=== PATIENT | male | born 1945 | race Caucasian/White ===

== ENCOUNTER 2017-11-10 14:25 | Inpatient (IN) | payer OTHER ==
[~2017-11-10] VITALS: Ht 165.1 cm; Wt 79.9 kg
[~2017-11-10 14:25] MED LIST: CARVEDILOL3.125 MG PO; CLEOCIN300 MG PO; COLACE100 MG PO; FLAGYL500 MG PO; HUMULIN N100 UNITS/ SC; HUMULIN R100 UNITS/ SC; Humulin R SC; LEVEMIR FL100 UNITS/ SC; LIPITOR10 MG PO; Lasix PO; Lovenox SC; Maxipime IV; NOVOLIN N100 UNITS/ SC; NOVOLOG PE100 UNITS/ SC; PROBIOTIC & AC1 EACH PO; Pravachol PO; Protonix IV; Protonix PO; QUESTRAN POWDE378 GM PO; Santyl TP; TYLENOL REGULA325 MG PO; VICODIN 5-3001 EACH PO; XANAX0.25 MG PO; Xanax PO; Zosyn IV
[2017-11-10 16:17] LABS: HEMATOCRIT 36.4 % (38.0-50.0); HEMOGLOBIN 12.9 G/DL (12.5-16.6); MCH 30.7 PG (29.0-34.0); MCHC 35.4 G/DL (30.0-36.0); MCV 86.7 FL (86-99); PLATELET COUNT 229 K/uL (156-360); RBC DIS.WIDTH-CV 12.7 % (11.8-14.6); RBC DIS.WIDTH-SD 40.4 % (39-53)
[2017-11-10 16:25] LABS: ALBUMIN 3.6 g/dL (3.2-4.8); CHLORIDE 98 mEq/L (99-109); POTASSIUM 4.6 mEq/L (3.7-5.4); SODIUM 133 mEq/L (136-147)
[2017-11-10 16:28] LABS: GLUCOSE 277 mg/dL (70-99)
[2017-11-10 16:30] LABS: APPEARANCE CLEAR ((CLEAR)); BILIRUBIN NEGATIVE; BLOOD NEGATIVE; COLOR YELLOW ((YELLOW)); GLUCOSE (STRIP) >=500; KETONES 5; LEUKOCYTES NEGATIVE; NITRITE NEGATIVE; PROTEIN (STRIP) 100; SPECIFIC GRAVITY 1.017 (1.000-1.030); UROBILINOGEN 0.2 MG/DL (0.2-1.0)
[2017-11-10 16:30] LABS: TOTAL BILIRUBIN 0.4 mg/dL (0.0-1.0)
[2017-11-10 16:31] LABS: ALKALINE PHOSPHATASE 105 IU/L (3-129); CREATININE 1.6 mg/dL (0.6-1.3); GFR ESTIMATE (CALCULATED) 46 mL/min/ (58.99-99999)
[2017-11-10 16:32] LABS: UREA NITROGEN (BUN) 41 mg/dL (9-23)
[2017-11-10 16:33] LABS: AST (GOT) 17 IU/L (2-34)
[2017-11-10 16:34] LABS: ALT (GPT) 17 IU/L (3-49)
[2017-11-10 16:35] LABS: BACTERIA NONE SEEN /HPF; EPITHELIAL CELLS NONE SEEN /HPF; HYALINE CASTS 0-5 /LPF; MUCUS NONE SEEN /LPF; RED BLOOD CELLS 0-5 /HPF (0-5); UCUL ADDED? NO; WHITE BLOOD CELLS 0-5 /HPF (0-5)
[2017-11-10 18:35] LABS: TROP-I INTERPRETATION INDETERMINATE
[2017-11-10] MEDS ORDERED: HUMULIN R100 UNITS/ SC (18:35)
[2017-11-10] MEDS ORDERED: HUMULIN N100 UNITS/ SC ×2 (18:39→18:40)
[2017-11-10] MEDS ORDERED: NYSTATIN15 GM TP (18:43)
[2017-11-10] MEDS ORDERED: ANTI ITCH TP (18:45)
[2017-11-10] MEDS ORDERED: TYLENOL EXTRA500 MG PO (18:46)
[2017-11-10] MEDS ORDERED: PROBIOTIC1 EAC1 PO (18:47)
[2017-11-10 22:29] LABS: HDL CHOLESTEROL 39 MG/DL (Desirable>=40); LDL CHOLESTEROL 154 mg/dL (Desirable<100); NON-HDL CHOLESTEROL 215 mg/dL (Desirable<160); TOTAL CHOLESTEROL 254 mg/dL (Desirable<200); TRIGLYCERIDES 307 MG/DL (Normal: <150)
[2017-11-10 22:39] LABS: TROP-I INTERPRETATION POSITIVE
[2017-11-10 22:41] LABS: Estimated Average Glucose 246 mg/dL (70-123); HEMOGLOBIN A1c (GLYCOHEMOGLOB) 10.2 % HGB (Below 5.7)
[2017-11-10 22:43] LABS: TROPONIN-I 0.62 ng/mL (0.0-0.30)
[2017-11-10 23:30] VITALS: BP 155/70
[2017-11-10 23:50] LABS: PTT 26.5 SEC (25-37)
[2017-11-11 05:06] VITALS: BP 136/60
[2017-11-11 06:08] LABS: TROP-I INTERPRETATION INDETERMINATE; TROPONIN-I 0.53 ng/mL (0.0-0.30)
[2017-11-11 07:52] VITALS: BP 159/66
[2017-11-11 12:16] VITALS: BP 179/77
[2017-11-11 16:22] VITALS: BP 177/68
[2017-11-11 19:25] VITALS: BP 136/88
[2017-11-12 00:05] VITALS: BP 135/63
[2017-11-12 04:25] VITALS: BP 145/67
[2017-11-12 05:31] LABS: BASOPHIL (%) 0.9 % (0-1); BASOPHIL COUNT 0.1 K/uL (0-0.1); EOSINOPHIL (%) 4.8 % (0-5); EOSINOPHIL COUNT 0.3 K/uL (0-0.3); HEMATOCRIT 33.2 % (38.0-50.0); IMMATURE GRANULOCYTE (%) 0.3 % (0.0-0.7); LYMPHOCYTE (%) 29.6 % (15-42); MCH 29.7 PG (29.0-34.0); MCHC 33.1 G/DL (30.0-36.0); MCV 89.7 FL (86-99); MONOCYTE (%) 11.2 % (3-12); MONOCYTE COUNT 0.8 K/uL (0-0.8); NEUTROPHIL (%) 53.2 % (45-76); NEUTROPHIL COUNT 3.6 K/uL (1.8-6.4); PLATELET COUNT 201 K/uL (156-360); RBC DIS.WIDTH-CV 13.1 % (11.8-14.6); WHITE BLOOD COUNT 6.7 K/uL (4.1-10.2)
[2017-11-12 06:11] LABS: CHLORIDE 110 MEQ/L (99-109); CREATININE 1.2 MG/DL (0.6-1.3); GFR ESTIMATE (CALCULATED) > 59 mL/min/ (58.99-99999); GLUCOSE 157 mg/dL (70-99); POTASSIUM 4.2 MEQ/L (3.7-5.4); UREA NITROGEN (BUN) 25 mg/dL (9-23)
[2017-11-12 06:13] LABS: SODIUM 142 MEQ/L (136-147)
[2017-11-12 07:51] VITALS: BP 143/63
[2017-11-12 12:45] VITALS: BP 153/77
[2017-11-12 16:17] VITALS: BP 188/77
[2017-11-12 20:30] VITALS: BP 145/78
[2017-11-13 00:15] VITALS: BP 125/74
[2017-11-13 03:13] VITALS: BP 150/62
[2017-11-13 08:30] VITALS: BP 160/71
[2017-11-13 12:29] VITALS: BP 170/82
[2017-11-13 16:37] VITALS: BP 147/65
[2017-11-13 21:30] VITALS: BP 147/67
[2017-11-14 01:22] VITALS: BP 118/74
[2017-11-14 04:10] VITALS: BP 132/88
[2017-11-14 05:23] LABS: HEMATOCRIT 33.9 % (38.0-50.0); HEMOGLOBIN 11.6 G/DL (12.5-16.6); MCH 30.6 PG (29.0-34.0); MCHC 34.2 G/DL (30.0-36.0); MCV 89.4 FL (86-99); PLATELET COUNT 178 K/uL (156-360); RBC DIS.WIDTH-CV 12.9 % (11.8-14.6); RBC DIS.WIDTH-SD 41.8 % (39-53); RED BLOOD COUNT 3.79 M/uL (4.00-5.50); WHITE BLOOD COUNT 8.9 K/uL (4.1-10.2)
[2017-11-14 05:49] LABS: CHLORIDE 106 MEQ/L (99-109); POTASSIUM 4.1 MEQ/L (3.7-5.4); SODIUM 138 MEQ/L (136-147)
[2017-11-14 05:55] LABS: CREATININE 1.1 MG/DL (0.6-1.3); GFR ESTIMATE (CALCULATED) > 59 mL/min/ (58.99-99999); GLUCOSE 177 mg/dL (70-99); UREA NITROGEN (BUN) 20 mg/dL (9-23)
[2017-11-14 07:46] VITALS: BP 137/62
[2017-11-14 11:34] VITALS: BP 161/73
[2017-11-14 20:45] VITALS: BP 141/67
[2017-11-15] VITALS (7 sets, daily range): BP systolic 106–149; BP diastolic 51–80
[2017-11-15] MEDS ORDERED: LOPRESSOR25 MG PO (15:27)
[2017-11-15] MEDS ORDERED: LOSARTAN POTASS25 MG PO (15:27)
[2017-11-15] MEDS ORDERED: CLOPIDOGREL75 MG PO (15:27)
[2017-11-15] MEDS ORDERED: ATORVASTATIN CA80 MG PO (15:27)
[2017-11-15] MEDS ORDERED: ASPIRIN EC325 MG PO (15:29)
[2017-11-15 17:31] LABS: CHLORIDE 102 MEQ/L (99-109); POTASSIUM 4.7 MEQ/L (3.7-5.4); SODIUM 133 MEQ/L (136-147)
[2017-11-15 17:40] LABS: CREATININE 1.2 MG/DL (0.6-1.3); GFR ESTIMATE (CALCULATED) > 59 mL/min/ (58.99-99999); UREA NITROGEN (BUN) 29 mg/dL (9-23)
[2017-11-15 17:54] LABS: GLUCOSE 451 mg/dL (70-99)
[2017-11-16 04:23] VITALS: BP 134/80
[2017-11-16 05:06] LABS: HEMATOCRIT 32.2 % (38.0-50.0); MCH 30.8 PG (29.0-34.0); MCHC 34.2 G/DL (30.0-36.0); MCV 90.2 FL (86-99); PLATELET COUNT 194 K/uL (156-360); RBC DIS.WIDTH-CV 12.8 % (11.8-14.6); RBC DIS.WIDTH-SD 42.2 % (39-53); RED BLOOD COUNT 3.57 M/uL (4.00-5.50); WHITE BLOOD COUNT 8.5 K/uL (4.1-10.2)
[2017-11-16 08:26] VITALS: BP 148/65
== END 2017-11-16 11:52 | DRG 65 ==
LOC: EME 14:25 → EDOF 20:28 → ENRESERV 20:34 → 4EAST 21:54 → EDOF 21:54 → 4EAST 23:19
PROVIDERS: Emergency Medicine; Hospitalist; Internal Medicine
DX: I63.9 Cerebral infarction, unspecified (principal); N17.9 Acute kidney failure, unspecified; I65.22 Occlusion and stenosis of left carotid artery; G81.91 Hemiplegia, unspecified affecting right dominant side; E11.22 Type 2 diabetes mellitus with diabetic chronic kidney disease; I51.7 Cardiomegaly; E11.42 Type 2 diabetes mellitus with diabetic polyneuropathy; E11.65 Type 2 diabetes mellitus with hyperglycemia; Z66 Do not resuscitate; F41.9 Anxiety disorder, unspecified; H54.8 Legal blindness, as defined in USA; I25.10 Atherosclerotic heart disease of native coronary artery without angina pectoris; E78.5 Hyperlipidemia, unspecified; F41.8 Other specified anxiety disorders; I10 Essential (primary) hypertension; Z89.512 Acquired absence of left leg below knee; Z87.891 Personal history of nicotine dependence; Z86.73 Personal history of transient ischemic attack (TIA), and cerebral infarction without residual deficits; Z95.1 Presence of aortocoronary bypass graft; Z89.511 Acquired absence of right leg below knee; Z89.412 Acquired absence of left great toe; Z82.49 Family history of ischemic heart disease and other diseases of the circulatory system; Z83.3 Family history of diabetes mellitus; Z68.28 Body mass index [BMI] 28.0-28.9, adult; Z79.4 Long term (current) use of insulin; I25.2 Old myocardial infarction; E87.1 Hypo-osmolality and hyponatremia
CPT/HCPCS: 70450; 70498; 70551; 71020; 80048; 80053; 80061; 81003; 82948; 83036; 84484; 85025; 85027; 85610; 85730; 92610 GN; 93005; 93306; 93880; 97530 GO; 99281; 99285; J1815; J7030